=== PATIENT | male | born 1990 | race Caucasian/White ===

== ENCOUNTER 2016-05-24 17:47 | Emergency (ER) | payer SELFPAY ==
[~2016-05-24] VITALS: Ht 175.3 cm; Wt 79.4 kg
[2016-05-24 17:48] VITALS: BP 139/80
== END 2016-05-24 18:31 | disposition home or self-care (01) ==
LOC: ER 17:49
DX: K62.89 Other specified diseases of anus and rectum (principal)
CPT/HCPCS: 99283; A4606; Z7610

== ENCOUNTER 2016-05-26 13:19 | Emergency (ER) | payer OTHER ==
[~2016-05-26] VITALS: Ht 175.3 cm; Wt 79.4 kg
[2016-05-26] MEDS ORDERED: MORPHINE SULFATE INJ 2 MG/ML DISP.SYRIN IV ONE ×2 (14:00→17:30)
[2016-05-26] MEDS ORDERED: ONDANSETRON HCL/PF 4 MG/2 ML VIAL IVP ONE (14:00)
[2016-05-26] MEDS ORDERED: IV NS 0.9% 500 ML BAG IV ONE (14:00)
[2016-05-26] MEDS ORDERED: IV NS 0.9% 500 ML IV ONE (14:09)
[2016-05-26] MEDS ORDERED: IV SET PRIMARY 1 EA INFUS.SET MC ONE (14:09)
[2016-05-26] MEDS ORDERED: ONDANSETRON HCL/PF 4 MG/2 ML VIAL ONE ×2 (14:09→17:04)
[2016-05-26] MEDS ORDERED: MORPHINE SULFATE INJ 4 MG/ML DISP.SYRIN ONE ×2 (14:09→17:04)
[2016-05-26 14:11] LABS: BASOPHILS # (AUTO) 0.1 /CMM (0.0-0.2); BASOPHILS % (AUTO) 0.5 % (0.0-2.0); DIFF TOTAL % 100 %; EOSINOPHILS # (AUTO) 0.3 /CMM (0.0-0.7); EOSINOPHILS % (AUTO) 2.1 % (0.0-6.0); HEMATOCRIT 41 % (39-51); HEMOGLOBIN 14.2 g/dL (13.5-17.5); LYMPHOCYTES # (AUTO) 3.4 /CMM (0.8-4.8); LYMPHOCYTES % (AUTO) 27.7 % (20.0-44.0); MEAN CORPUSCULAR HEMOGLOBIN 31 PG (26.0-33.0); MEAN CORPUSCULAR HGB CONC 35 g/dl (31.0-36.0); MEAN CORPUSCULAR VOLUME 91 fL (80-96); MONOCYTES # (AUTO) 0.9 /CMM (0.1-1.30); MONOCYTES % (AUTO) 7.5 % (2.0-12.0); NEUTROPHILS # (AUTO) 7.4 /CMM (1.8-8.9); NEUTROPHILS % (AUTO) 62.2 % (43.0-81.0); PLATELET COUNT (AUTO) 171 /CMM (150-450); RED BLOOD CELL COUNT(AUTO) 4.53 MIL/uL (4.5-6.0); WHITE BLOOD COUNT (AUTO) 12.1 K/uL (4.3-11.0)
[2016-05-26 14:21] LABS: CALCIUM, SERUM 8.9 mg/dL (8.5-10.1); CREATININE 0.7 mg/dL (0.6-1.3); POTASSIUM 4.6 mmol/L (3.5-5.1)
[2016-05-26] MEDS ORDERED: CT SWABBABLE VALVE TRANS SET 1 EA INFUS.SET MC ONE (14:31)
[2016-05-26] MEDS ORDERED: IOHEXOL-300 100 ML VIAL IV ONE (14:31)
[2016-05-26] MEDS ORDERED: IV NS 0.9% 250 ML IV ONE (14:31)
[2016-05-26] MEDS ORDERED: ONDANSETRON HCL/PF 4 MG/2 ML VIAL IV ONE (17:30)
[2016-05-26 18:54] VITALS: BP 116/68
== END 2016-05-26 18:55 | disposition home or self-care (01) ==
LOC: ER 13:22
DX: K62.89 Other specified diseases of anus and rectum (principal)
CPT/HCPCS: 36415; 74160; 80048; 85025; 96361; 96374 ×2; 96375; 99285; A4606; J2270 ×2; J2405 ×2; J7040; J7050; Q9967; Z7610